=== PATIENT | male | born 1975 | race Caucasian/White ===

== ENCOUNTER 2023-06-01 21:55 | Emergency (ER) | payer OTHER ==
[~2023-06-01] VITALS: Ht 177.8 cm; Wt 84.8 kg
[~2023-06-01 21:55] MED LIST: CEPH500 PO; ESOM20; HYDACE5 PO; PARO30; RXCEPH500 PO
[2023-06-01 22:02] VITALS: BP 150/116
== END 2023-06-01 22:13 | disposition home or self-care (01) ==
LOC: ER 21:55
DX: M79.672 Pain in left foot (principal)
CPT/HCPCS: 99282